=== PATIENT | male | born 1985 | race Caucasian/White ===

== ENCOUNTER 2017-03-25 17:57 | Emergency (ER) | payer MEDICAID, OTHER, SELFPAY ==
[~2017-03-25] VITALS: Ht 167.6 cm; Wt 54.5 kg
[~2017-03-25 17:57] MED LIST: NSAIDS; No Historical Meds
[2017-03-25] MEDS ORDERED: NS 1,000 ML IV ONE (18:15)
[2017-03-25] MEDS ORDERED: KETOROLAC 30 MG/ML VIAL (J1885) IV ONE (18:15)
[2017-03-25] MEDS ORDERED: ONDANSETRON 4MG/2ML VIAL (J2405) IV ONE (18:15)
[2017-03-25] MEDS: MORPHINE 4 MG/ML 1ML SYRINGE IV PRN ×2 (18:34→19:57)
[2017-03-25 18:49] LABS: BASO # 0.1 K/mm3 (0.0-0.2); BASO % 0.5 % (0.0-1.0); EOS # 0.2 K/mm3 (0.0-0.50); EOS % 1.2 % (0.0-3.0); LARGE UNSTAINED CELL # 0.3 K/mm3 (0.0-0.4); LARGE UNSTAINED CELL % 2.1 % (0.0-4.0); LYMPH # 5.3 K/mm3 (1.5-4.5); MEAN CORPUSCULAR HEMOGLOBIN 31.9 pg (27.0-33.0); MEAN CORPUSCULAR HGB CONC 35.3 g/dl (32.0-36.5); MEAN CORPUSCULAR VOLUME 90.2 fl (80.0-96.0); MONO # 0.7 K/mm3 (0.0-0.8); MONO % 4.7 % (0.0-5.0); NEUTROPHILS # 8.1 K/mm3 (1.8-7.7); NEUTROPHILS % 56.4 % (36.0-66.0); PLATELET COUNT, AUTOMATED 223 k/mm3 (150-450); RED CELL DISTRIBUTION WIDTH 12.6 % (11.5-14.5)
--- NOTE | 2017-03-25 19:00 | REPUSA ---
CT of the abdomen and pelvis without contrast Clinical statement: Pain. Technique: Multiple axial CT images were obtained from the base of the lungs to the floor of the pelv is utilizing 5 mm axial slices without administration of contrast. Coronal and sagittal reconstructio ns were also obtained. Comparison: 06/17/2015. Findings: Chest: The visualized lung bases are clear. Abdomen: The kidneys are normal in size bilaterally. There is mild left-sided hydronephrosis caused b y a 3 mm stone in the mid-left ureter. 1 mm nonobstructing stone is seen in the left renal collecting system. The right kidney is unremarkable. The liver, spleen, pancreas, gallbladder and adrenal gland s are unremarkable. The aorta demonstrates normal caliber and contour. There is no abdominal lymphade nopathy or ascites. Pelvis: The bowel is unremarkable, with no obstructive or inflammatory changes. The appendix is iwona l. The urinary bladder is within normal limits. There is no pelvic lymphadenopathy or ascites. The ot her pelvic structures appear unremarkable. Bones: There are no suspicious osseous abnormalities seen. Impression: Mild left-sided hydronephrosis caused by a 3 mm obstructing stone in the mid-left ureter as described.
[2017-03-25 19:22] LABS: WHITE BLOOD COUNT 14.3 K/mm3 (4.0-10.0)
[2017-03-25 19:37] LABS: ALBUMIN 4.1 GM/DL (3.2-5.2); ALBUMIN/GLOBULIN RATIO 1.32 (1.00-1.93); ALKALINE PHOSPHATASE 85 U/L (45-117); ALT/SGPT 19 U/L (12-78); ANION GAP 11 MEQ/L (8-16); AST/SGOT 19 U/L (15-37); BILIRUBIN,DIRECT 0.1 MG/DL (0.0-0.2); BILIRUBIN,TOTAL 0.4 MG/DL (0.2-1.0); BLOOD UREA NITROGEN 14 MG/DL (7-18); CALCIUM LEVEL 9.3 MG/DL (8.5-10.1); CARBON DIOXIDE LEVEL 23 MEQ/L (21-32); CHLORIDE LEVEL 107 MEQ/L (98-107); CREATININE FOR GFR 1.05 MG/DL (0.70-1.30); GLOMERULAR FILTRATION RATE > 60.0 (>60); GLUCOSE, FASTING 93 MG/DL (70-105); POTASSIUM SERUM 3.7 MEQ/L (3.5-5.1); SODIUM LEVEL 141 MEQ/L (136-145); TOTAL PROTEIN 7.2 GM/DL (6.4-8.2)
[2017-03-25 19:57] VITALS: BP 108/59
[2017-03-25] MEDS ORDERED: PERC5TAB12 PO (20:04)
[2017-03-25] MEDS ORDERED: ZOFR4TAB3 PO (20:04)
[2017-03-25] MEDS ORDERED: FLOM5CAP PO (20:04)
== END 2017-03-25 20:10 | disposition home or self-care (01) ==
LOC: M ED 17:57
DX: N20.1 Calculus of ureter (principal); F17.210 Nicotine dependence, cigarettes, uncomplicated; Z79.899 Other long term (current) drug therapy
CPT/HCPCS: 74176; 80048; 80076; 81001; 83690; 85025; 96374; 96375; 96376; 99283; J1885; J2405

== ENCOUNTER → 2017-09-18 | Outpatient (REF) | payer OTHER ==
[2017-09-18 19:10] LABS: AMORPHOUS SEDIMENT LARGE (NEGATIVE); APPEARANCE, URINE CLOUDY (CLEAR); BACTERIA, URINE AUTO NEGATIVE (NEGATIVE); BILIRUBIN, URINE AUTO NEGATIVE (NEGATIVE); BLOOD, URINE BLOOD NEGATIVE (NEGATIVE); COLOR, URINE YELLOW (YELLOW); GLUCOSE, URINE (UA) AUTO NEGATIVE (NEGATIVE); KETONE, URINE AUTO NEGATIVE (NEGATIVE); LEUKOCYTE ESTERASE, URINE AUTO NEGATIVE (NEGATIVE); MUCUS, URINE SMALL (NEGATIVE); NITRITE, URINE AUTO NEGATIVE (NEGATIVE); PROTEIN, URINE AUTO NEGATIVE (NEGATIVE); RBC, URINE AUTO 2 /HPF (0-3); SPECIFIC GRAVITY URINE AUTO 1.019 (1.002-1.035); SQUAMOUS EPITHELIAL CELL UR AU 1 /HPF (0-6); WBC, URINE AUTO 0 /HPF (0-3)
== END ==
LOC: M SFHCPLAZ 17:25
DX: N20.0 Calculus of kidney (principal)

== ENCOUNTER → 2017-10-08 | Outpatient (CLI) | payer OTHER | LOC: M RAD 15:32 | DX: N20.0 Calculus of kidney (principal) | CPT/HCPCS: 76775 ==

== ENCOUNTER → 2020-08-25 | Outpatient (CLI) | payer SELFPAY ==
[~2020-08-25] MED LIST changes: +FLOM0.4C39 PO; +PERC5TAB12 PO; +ZOFR4TAB14 PO
== END ==
LOC: M LABSMTC 11:36
PROVIDERS: ATTEND Pediatrics
DX: Z20.828 Contact with and (suspected) exposure to other viral communicable diseases (principal)

== ENCOUNTER 2024-02-10 22:38 | Emergency (ER) | payer OTHER, SELFPAY ==
[~2024-02-10] VITALS: Ht 167.6 cm; Wt 53.6 kg
[2024-02-11 03:05] VITALS: TEMP 98.1
[2024-02-11] MEDS: ACETAMINOPHEN TAB 650MG DOSE (2X325MG) PO ONE (03:29)
[2024-02-11 06:00] VITALS: BP 113/56
[2024-02-11 06:11] VITALS: O2SAT 98
== END 2024-02-11 06:29 | disposition home or self-care (01) ==
LOC: M ED 22:38
DX: S92.325A Nondisplaced fracture of second metatarsal bone, left foot, initial encounter for closed fracture (principal); S92.335A Nondisplaced fracture of third metatarsal bone, left foot, initial encounter for closed fracture; W51.XXXA Accidental striking against or bumped into by another person, initial encounter; F12.10 Cannabis abuse, uncomplicated; F17.200 Nicotine dependence, unspecified, uncomplicated; Y92.328 Other athletic field as the place of occurrence of the external cause; Y93.89 Activity, other specified; Y99.9 Unspecified external cause status